=== PATIENT | male | born 1960 | race Caucasian/White ===

== ENCOUNTER 2018-09-01 20:35 | Emergency (ER) | payer OTHER ==
[2018-09-01] MEDS: ONDANSETRON 4 MG INJ IV (22:51)
[2018-09-01] MEDS: morphine 4 MG/ML VIAL IV (22:52)
[2018-09-01 22:55] LABS: ADD MAN DIFF? NO
[2018-09-01 22:56] LABS: WHITE BLOOD COUNT 12.1 10^3/ul (4.8-10.8)
[2018-09-01 22:56] LABS: BASOPHIL # 0.1 10^3/ul (0.0-0.1); BASOPHILS % 0.5 % (0.0-2.0); EOSINOPHILS % 0.3 % (0.0-7.0); HEMATOCRIT 45.4 % (42.0-52.0); HEMOGLOBIN 15.9 g/dl (14.0-18.0); LYMPHOCYTES # 0.8 10^3/ul (0.8-2.9); LYMPHOCYTES % 6.3 % (15.0-51.0); MEAN CORPUSCULAR HEMOGLOBIN 31.7 pg (29.0-33.0); MEAN CORPUSCULAR VOLUME 90.4 fl (82.0-101.0); MEAN PLATELET VOLUME 9.9 fl (7.4-10.4); MONOCYTE # 0.3 10^3/ul (0.3-0.9); MONOCYTES % 2.6 % (0.0-11.0); NEUTROPHIL # 10.8 10^3/ul (1.6-7.5); NEUTROPHILS % 89.8 % (39.0-77.0); PLATELET COUNT 248 10^3/UL (140-415); RED BLOOD COUNT 5.02 10^6/ul (4.70-6.10); RED CELL DISTRIBUTION WIDTH 11.4 % (11.5-14.5)
[2018-09-01] MEDS: ACETAZOLAMIDE 500 MG INJ IV (22:59)
[2018-09-01] MEDS: PILOCARPINE 2% 15ML OPH RIGHT EYE (22:59)
[2018-09-01] MEDS: TIMOLOL MALEATE/PF 0.5% OCCUDOSE (0.3 ML) RIGHT EYE (22:59)
[2018-09-01] MEDS: APRACLONIDINE 1% 0.1 ML OPH RIGHT EYE (22:59)
[2018-09-01 23:13] LABS: ANION GAP 11 (5-13); BLOOD UREA NITROGEN 18 mg/dl (7-20); CALCIUM 9.1 mg/dl (8.4-10.2); CARBON DIOXIDE 26 mmol/L (21-31); CHLORIDE 105 mmol/L (97-110); CREATININE 0.71 mg/dl (0.61-1.24); Estimated GFR > 60 mL/min (>60); GLUCOSE 123 mg/dl (70-220); SODIUM 142 mmol/L (135-144)
[2018-09-01 23:16] LABS: INR 0.92; PARTIAL THROMBOPLASTIN TIME 27.9 Sec (23.0-35.0); PROTIME 12.5 Sec (11.9-14.9)
[2018-09-01 23:25] LABS: TROPONIN-I < 0.012 ng/ml (0.000-0.120)
[2018-09-02 00:20] LABS: ERYTHROCYTE SEDIMENTATION RATE 1 mm/Hr (0-20)
[2018-09-02] MEDS: IOHEXOL 350MG/ML 50 ML BTL (00:24)
[2018-09-02] MEDS: IOHEXOL 100 ML (00:24)
[2018-09-02] MEDS: SOD CHLORIDE 0.9% 100 ML (00:25)
[2018-09-02] MEDS: morphine 4 MG/ML VIAL IV ×2 (01:05→03:24)
[2018-09-02] MEDS: ONDANSETRON 4 MG INJ IV (03:23)
== END 2018-09-02 10:31 | disposition home or self-care (01) ==
LOC: E/R 20:35
DX: H40.211 Acute angle-closure glaucoma, right eye (principal); R42 Dizziness and giddiness; R40.2142 Coma scale, eyes open, spontaneous, at arrival to emergency department; R40.2252 Coma scale, best verbal response, oriented, at arrival to emergency department; R40.2362 Coma scale, best motor response, obeys commands, at arrival to emergency department; Z87.891 Personal history of nicotine dependence
CPT/HCPCS: 36415; 70450; 70496; 70498; 80048; 84484; 85025; 85610; 85651; 85730; 93005; 96374; 96375; 96376; 99291-25

== ENCOUNTER 2019-03-08 11:27 | Day surgery (SDC) | payer OTHER ==
[2019-03-08] MEDS ORDERED: GLYCOPYRROLATE 0.4 MG INJ (12:45)
[2019-03-08] MEDS ORDERED: PROPOFOL 40 ML (12:45)
== END 2019-03-08 21:52 | disposition home or self-care (01) ==
LOC: GIL 11:27
DX: Z12.11 Encounter for screening for malignant neoplasm of colon (principal); D12.2 Benign neoplasm of ascending colon; K64.8 Other hemorrhoids; K57.30 Diverticulosis of large intestine without perforation or abscess without bleeding
CPT/HCPCS: 45380; 88305